=== PATIENT | female | born 1980 | race Caucasian/White ===

== ENCOUNTER 2022-05-14 10:16 | Emergency (ER) | payer BC, SELFPAY ==
[2022-05-14 10:17] VITALS: BP 148/91; PULSE 94; RESP 16; TEMP 36.6; O2SAT 98; BMI 32.8
--- NOTE | 2022-05-14 10:49 | CT_ITS ---
STUDY: CT ABDOMEN AND PELVIS WITHOUT CONTRAST REASON FOR EXAM: Female, 41 years old. Diffuse abdominal pain RADIATION DOSAGE (If Supplied By Facility): CTDIvol = ( 9.47 ) mGy, DLP = ( 478.15 ) mGycm TECHNIQUE: Transaxial images were obtained from the dome of the diaphragm to the symphysis pubis without oral contrast, and without intravenous contrast. Sagittal and coronal images were reconstructed. Individualized dose optimization techniques were used for this CT. COMPARISON: None. FINDINGS: The visualized lung bases are unremarkable. The visualized portions of the heart are within normal limits. Normal liver. Normal gallbladder and extrahepatic biliary system. Normal spleen. Normal pancreas. Normal bilateral adrenal glands. Normal right kidney. Normal left kidney. Normal visualized stomach. Normal small intestine. Scattered colonic diverticula, no CT evidence of acute diverticulitis. The appendix is visualized and appears normal. Appendix seen on coronal recon images 57 through 70 Normal abdominal aorta. Normal inferior vena cava. Normal retroperitoneum. Normal urinary bladder. Normal-appearing uterus, physiologic ovarian cysts. No suspicious cystic mass or free fluid. Normal abdominal wall. Normal osseous structures. CT/Abdomen/Pelvis without Cont IMPRESSION: No suspicious solid organ abnormality No free intraperitoneal fluid, air, or suspicious adenopathy, normal appendix visualized Colonic diverticula, no CT evidence of acute diverticulitis. Electronically Signed: Sher Dotson MD at 12:05 EST ,
--- NOTE | 2022-05-14 10:56 | ED.VIS.BACK ---
HPI History of Present Illness Chief Complaint: Back Informant: patient Onset/Context/Timing Onset: Days Narrative Narrative: Patient present secondary to back pain. She states that last couple days she is noted some aching in her back that she thought may be secondary to a UTI. Early this morning she went outside and picked her puppy up. She had sudden worsened low back pain and states she fell to her knee and pain radiated down her left leg. She lost bladder control that time. Since that time she is had no problems with bowel or bladder control. She has not taken anything for her pain. [facility] Medical History (Updated 05/14/22 @ 12:[address] Karine Isabel MD) Hypothyroid Medical History no medical history no medical history Home Medications cyclobenzaprine 10 mg tablet 10 mg PO BID PRN muscle spasm #10 tabs 05/14/22 [Rx Last Taken Unknown] hydrocodone-acetaminophen 5-325mg 5mg-325mg 1 tab PO Q6H PRN pain 3 days #10 tabs 05/14/22 [Rx Last Taken Unknown] naproxen 500 mg tablet (Naprosyn) 500 mg PO BID PRN pain #20 tabs 05/14/22 [Rx Last Taken Unknown] prednisone 20 mg tablet 40 mg PO DAILY #10 tabs 05/14/22 [Rx Last Taken Unknown] Allergy/AdvReac Type Severity Reaction Status Date / Time No Known Allergies Allergy Verified 05/14/22 10:19 Social History Smoking Status: Never smoker ROS ROS ED Constitutional Constitutional ED: Denies chills or fever(s) Eyes Eyes: Denies change in vision or discharge from eye(s) ENT ENT ED: Denies discharge from eye(s), rhinorrhea or sore throat Cardiovascular Cardiovascular: Denies chest pain or palpitations Respiratory/Chest Respiratory/Chest: Denies cough or dyspnea Gastrointestinal Gastrointestinal: Denies abdominal pain, diarrhea, nausea or vomiting Genitourinary Genitourinary ED: Denies difficulty urinating or dysuria Musculoskeletal Musculoskeletal: Reports back pain and extremity pain Integumentary Denies Abrasions or rash Neurologic Neurologic: Denies headache(s) or weakness Psychiatric Psychiatric: Denies anxiety or depression Allergic/Immunologic Allergic/Immunologic ED: Denies lip swelling or urticaria EXAM Physical Exam Const Vital Signs: 05/14/22 10:17 Temperature 97.9 F Temperature Source Temporal Pulse Rate 94 Respiratory Rate 16 Blood Pressure 148/91 H Blood Pressure Mean 110 Pulse Ox 98 Oxygen Delivery Method Room Air Positive well nourished and well developed General Appearance ED: well developed HEENT Reports normocephalic and head/scalp atraumatic Eyes PERRL and EOMs intact bilaterally Neck supple Chest Wall inspection of chest normal and palpation of chest normal Resp normal respiratory effort and clear to auscultation bilaterally Cardio regular rate and regular rhythm GI normal to inspection, nondistended, normoactive bowel sounds Palpation: soft Extremity normal to inspection Neuro oriented x3 and no sensory deficits noted Sensorium / Orientation: alert Motor Exam: strength 5/5 throughout Deep Tendon Reflexes: Rt Patellar (L4): 3+ and Lt Patellar (L4): 3+ Deep Tendon Reflexes Back: Rt Patellar (L4): 3+ and Lt Patellar (L4): 3+ Psych mental status grossly normal Skin no rashes or lesions noted MDM MDM MDM Narrative Medical decision making narrative: Patient given Toradol and Zofran that she did drive herself to the emergency room. Urinalysis obtained along with CT flank. Lab Data Attestation: I reviewed the patient's lab results. Labs: Laboratory Results - last 24 hr 05/14/22 11:13 Urine Color Yellow Urine Clarity Clear Urine pH 6.0 Ur Specific [place] 1.020 Urine Protein Negative Urine Glucose (UA) Normal Urine Ketones Negative Urine Occult Blood 10 H Urine Nitrite Negative Urine Bilirubin Negative Urine Urobilinogen Normal Ur Leukocyte Esterase 25 H Urine RBC 0 SEEN Urine WBC 0 SEEN Ur Squamous Epith Cells 0-5 SEEN Urine Bacteria 0 SEEN Urine Mucus 0 SEEN Urine Test Negative Radiography Diagnostic Testing: Clinical Impression(s) from Imaging Studies Abdomen/Pelvis CT 05/14/22 10:49 IMPRESSION: No suspicious solid organ abnormality No free intraperitoneal fluid, air, or suspicious adenopathy, normal appendix visualized Colonic diverticula, no CT evidence of acute diverticulitis. Electronically Signed: Sher Dotson MD at 12:05 EST , Treatment and Re-Evaluation Narrative: Urinalysis reveals no sign of acute infection. test is negative. CT flank reveals no suspicious abnormality. Test results are discussed with the patient. She does have back pain with evidence of sciatica. She is a good neuro exam and I do not clinically suspect cauda equina. Patient be treated with [place], Naprosyn, Flexeril, prednisone. Return instructions given. Discharge Plan Triage Chief Complaint: Back ED Provider: Karine Isabel Dx/Rx/DC Orders Clinical Impression: Sciatica Instructions: ED Sciatica Prescriptions: New naproxen [Naprosyn] 500 mg tablet 500 mg PO BID PRN (Reason: pain) Qty: 20 0RF hydrocodone-acetaminophen 5-325 mg tablet 1 tab PO Q6H PRN (Reason: pain) 3 Days Qty: 10 0RF cyclobenzaprine 10 mg tablet 10 mg PO BID PRN (Reason: muscle spasm) Qty: 10 0RF prednisone 20 mg tablet 40 mg PO DAILY Qty: 10 0RF Primary Care Provider: FAHAD BUSCH Referrals: FAHAD BUSCH [Other] - 1 Week [facility] Doctor,Out of [Non-Staff] - Disposition Disposition: Home, Self Care
[2022-05-14] MEDS: Ondansetron 4 MG/2 ML Vial IV (11:05)
[2022-05-14] MEDS: Ketorolac 30 MG/ML Syringe IV (11:05)
[2022-05-14 11:20] LABS: Bacteria 0 SEEN /hpf (None Seen); Color, Urine Yellow (Yellow); Glucose, Dipstick Normal (Normal); Ketone-Dipstick Negative (Negative); Leukocyte Esterase-Dipstick 25 /ul (Negative); Mucous, Urine 0 SEEN /hpf (<or=2+); Nitrite-Dipstick Negative (Negative); Occult Blood-Urine 10 /ul (Negative); Protein-Dipstick Negative (Negative); Red Blood Cells-Urine 0 SEEN /hpf (0-5); Urine Bilirubin Dipstick Negative (Negative); Urine Clarity Clear (Clear); Urine Urobilinogen Normal (Normal); White Blood Cells 0 SEEN /hpf (0-5)
[2022-05-14 11:26] LABS: Squamous Epithelial Cells - UA 0-5 SEEN /hpf (5-10)
[2022-05-14 11:27] LABS: Internal QC Validated? YES +Cl - CLEAR BKGD; Pregnancy, Urine Negative Negative
== END 2022-05-14 12:25 | disposition home or self-care (01) ==
PROVIDERS: Emergency Provider Emergency Medicine; Visit Provider Emergency Medicine
DX: M54.30 Sciatica, unspecified side (principal); M79.605 Pain in left leg; M25.562 Pain in left knee; Z79.52 Long term (current) use of systemic steroids
CPT/HCPCS: 74176; 81001; 81025; 96374; 96375; 99283; A4216; J2405